=== PATIENT | male | born 1955 | race Caucasian/White ===

== ENCOUNTER 2019-06-14 06:35 | Emergency (ER) | payer SELFPAY ==
[~2019-06-14] VITALS: Ht 167.6 cm; Wt 54.4 kg
[2019-06-14 09:10] VITALS: BP 146/66
== END 2019-06-14 10:02 | disposition home or self-care (01) ==
LOC: EDBD 06:35 → ER 06:35
DX: T14.90XA Injury, unspecified, initial encounter (principal); J44.9 Chronic obstructive pulmonary disease, unspecified; F17.210 Nicotine dependence, cigarettes, uncomplicated; I69.820 Aphasia following other cerebrovascular disease; W19.XXXA Unspecified fall, initial encounter; Y93.89 Activity, other specified; Y92.098 Other place in other non-institutional residence as the place of occurrence of the external cause; Y99.8 Other external cause status
CPT/HCPCS: 93005